=== PATIENT | female | born 1980 | race Caucasian/White ===

== ENCOUNTER 2017-12-11 00:10 | Observation (INO) | payer OTHER ==
[2017-12-11] VITALS (8 sets, daily range): BP systolic 106–127; BP diastolic 56–84
[~2017-12-11] VITALS: Ht 172.7 cm; Wt 77.1 kg
[~2017-12-11 00:10] MED LIST: ALB17R INH; CIP500 PO; KET10 PO; LEVO-3 PO; LEVOTHYROXINE; LOR5/325 PO; MONT10TA PO; MULT1CAP41 PO; NAPR-1043 PO; OMEP-218 PO; OMEP40CA48 PO
[2017-12-11] MEDS ORDERED: ACETAMINOPHEN(*)1000 MG/100 ML 100 ML IVPB ONE (08:29)
[2017-12-11] MEDS ORDERED: ONDANSETRON 4 MG/2 ML VIAL ONE (09:10)
[2017-12-11] MEDS ORDERED: ROCURONIUM BROM 10 MG/ML 10 ML ONE (09:10)
[2017-12-11] MEDS ORDERED: METOCLOPRAMIDE 10 MG/2 ML SDV ONE (09:10)
[2017-12-11] MEDS ORDERED: LIDOCAINE MPF 1% 5 ML VIAL ONE (09:10)
[2017-12-11] MEDS ORDERED: PROPOFOL EMUL(*) 10MG/ML 20 ML 20 ML ONE (09:10)
[2017-12-11] MEDS ORDERED: SUGAMMADEX SOD 200 MG/2 ML SDV ONE (09:10)
[2017-12-11] MEDS ORDERED: DEXAMETHASONE SOD 4 MG/ML VIAL ONE (09:10)
[2017-12-11] MEDS ORDERED: fentaNYL CITR 250 MCG/5 ML AMP ONE (09:13)
[2017-12-11 12:14] LABS: PLATELET COUNT, AUTOMATED 259 K/uL (150-450)
[2017-12-11] MEDS ORDERED: LIDOCAINE/SOD BICARB 8.4% SYR ID ONE (12:30)
[2017-12-11] MEDS ORDERED: cefOXitin SOD 2 GM VIAL 2 GM in NS(*) 0.9% 100 ML BAG 100 ML IVPB ONE (12:30)
[2017-12-11] MEDS ORDERED: PHENAZOPYRIDINE 200 MG TAB PO ONE (12:30)
[2017-12-11] MEDS ORDERED: MIDAZOLAM 2 MG/2 ML VIAL IVP PRN (12:30)
[2017-12-11] MEDS ORDERED: cefOXitin/DEX(*) 2GM/50ML PREM 50 ML IVPB ONE (12:30)
[2017-12-11] MEDS ORDERED: NORMOSOL R SOLN(*) 1000 ML BAG 1,000 ML IV PRN (12:30)
[2017-12-11] MEDS ORDERED: ROPIVACAINE 0.2% 20 ML VIAL ONE (13:43)
[2017-12-11] MEDS ORDERED: HYDROmorphone HCL 2 MG TAB PO PRN (16:20)
[2017-12-11] MEDS ORDERED: BELLADONNA ALK/OPIUM 60MG SUPP PR PRN (16:20)
[2017-12-11] MEDS ORDERED: ZOLPIDEM TARTRATE 10 MG TAB PO PRN (16:20)
[2017-12-11] MEDS ORDERED: ACETAMINOPHEN 325 MG TAB PO PRN (16:20)
[2017-12-11] MEDS ORDERED: ONDANSETRON 4 MG/2 ML VIAL IV PRN (16:20)
[2017-12-11] MEDS ORDERED: INFLUENZA VIRUS VAC 0.5 ML SYR IM ONE (16:20)
[2017-12-11] MEDS ORDERED: PROMETHAZINE 25 MG/ML 1 ML AMP IVP PRN (16:20)
[2017-12-11] MEDS ORDERED: SIMETHICONE 80 MG CHEW CHEW PRN (16:20)
--- NOTE | 2017-12-11 16:33 | Post Operative Note ---
Operative Note - GLASS CLEANER Operative Day Date: December 11, 2017 Time: 16:21 Physicians Surgeon: Rosalia [employer] Computation Clerk: Kathy Anesthesia: GETA Diagnosis Pre-Op Diagnosis: Dysmenorrhea Menorrhagia Post-Op Diagnosis: same endometriosis Procedure Findings: endometriosis Procedure(s): RATLH Bilateral salpingectomy [facility] Cystoscopy Specimen Removed:(Maybe N/A): [id number] Complications: none Fluids Fluids: 2200 ml Estimated Blood Loss: 50 ml Dictated Date OP Note Dictated: December 11, 2017 Time OP Note Dictated: 16:33 Copies to: AKIRA LOCKWOOD MD, TRAVIS MD December 11, 2017 16:33
[2017-12-11] MEDS ORDERED: fentaNYL CITR 100 MCG/2 ML AMP ONE ×2 (16:34→17:03)
[2017-12-11] MEDS: KETOROLAC 30 MG/ML VIAL IVP SCH ×2 (18:30→23:40)
--- NOTE | 2017-12-11 19:32 | OPERATIVE REPORT 1 ---
EVENT DATE: December 11, 2017 SURGEON: Zac Lindsey MD ANESTHESIOLOGIST: Perez Adkins MD ANESTHESIA: General endotracheal. HATCHERY LABORER: Perez Chavez MD PREOPERATIVE DIAGNOSES 1. Secondary dysmenorrhea. 2. Menorrhagia. POSTOPERATIVE DIAGNOSES 1. Secondary dysmenorrhea. 2. Menorrhagia. PROCEDURES PERFORMED 1. Robotic-assisted total laparoscopic hysterectomy. 2. Modified Le culdoplasty. 3. Bilateral salpingectomy. 4. Diagnostic cystoscopy. ESTIMATED BLOOD LOSS 50 mL FLUIDS Crystalloid 2200 mL IV. URINE OUTPUT Not measured. FINDINGS Normal-appearing ovaries, boggy-appearing uterus. No adhesions. Normal right upper quadrant. PROCEDURE IN DETAIL The patient was brought to the operating room with a working IV, placed in the dorsal supine position. She was placed under general endotracheal anesthesia and then moved to the dorsal lithotomy position. She was prepped and draped in the usual sterile fashion. A weighted speculum was placed in the vagina. The cervix was grasped on the anterior lip with a single-toothed tenaculum. The uterus was sounded to a depth of 8 cm, and a large VCare uterine manipulator was selected, assembled, and the VCare was passed through the cervix into the uterus, bulb inflated and secured. The VCare cup was sutured to the cervix and secured. The pneumo-preventing portion was approximated against the cup and secured in place. Gentile catheter was placed and put to dependent drainage. Legs were brought back to the supine position, and gloves were changed. We proceeded laparoscopically. Measuring from the target anatomy to the umbilicus was 12 cm; therefore, we proceeded with an umbilical incision 8 mm in size, elevated the anterior abdominal wall, and a Veress needle was passed through this incision into the abdomen. A pneumoperitoneum was created to an intra- abdominal pressure of 20 mmHg. Veress needle was removed, and an 8 mm robotic trocar was passed through this incision into the abdomen atraumatically. Additional robotic ports were placed as follows: The left lateral at 9 cm lateral to the umbilical port, two ports along the right side, both at 9 mm lateral in straight line with the umbilical port. These were all placed under similar technique and without incident, and an 11 mm health education assistant port was placed cephalad to the umbilical and left lateral port by 7 mm each, triangulating from that location. All ports were placed without incident. The robot was brought into place, and the trocars were visually verified that they were in the right location relative to the fascia. Then, the #2 arm of the robot was docked to the umbilical port. A camera was placed, and the machine was targeted. Once completed, the additional arms were docked, and the instruments were attached. They were followed into the patient's abdomen and pelvis, and all was done without incident. The vessel sealer was placed on arm #1, the monopolar scissors on arm #3, and a ProGrasp on arm #4. I then scrubbed out and presented to the console. The uterine manipulator was used to manipulate the uterus. The hysterectomy proceeded as follows: The right fallopian tube was grasped and elevated while the vessel sealer was used to cauterize and transect through the mesosalpinx to the utero-ovarian ligament. The utero- ovarian ligament was cauterized and transected with the vessel sealer. The round ligament was then cauterized and transected with the vessel sealer. The uterus was retroverted some, and we proceeded into the broad ligament which was into anterior and posterior leaflets. The anterior leaflet was followed along the anterior uterus creating a bladder flap, and the posterior leaflet was followed down to the uterosacral ligament on the right side. The uterine vessels were skeletonized and then cauterized with the vessel sealer and taken down using sharp dissection. The bladder was taken down, and the VCare cup was visually presenting through the vagina. Anterior colpotomy was then performed at this time in order to verify location. Once I had secured the anterior colpotomy, the right uterine vasculature was verified to have been taken down adequately, and then we proceeded along the left side in a likewise fashion, taking the left fallopian tube with the vessel sealer to the utero- ovarian ligament, cauterizing the utero-ovarian ligament, transecting and dissecting into the round ligament and into the broad ligament. It was in anterior and posterior leaflets. The anterior leaflet completed the dissection on the anterior side, and the posterior side was dissected down to the utero-ovarian ligament. The uterine vasculature was skeletonized. The uterine vessels were cauterized with the vessel sealer and taken down with sharp dissection down to the VCare cup. A posterior colpotomy was performed and dissected through the uterosacral ligaments on both sides. I then followed careful dissection circumferentially with the assistance of the VCare cup to complete the colpotomy. Once completed, the uterus was removed through the vagina, and a bulb grenade was placed to maintain the pneumoperitoneum. Instruments were changed for a long tip grasper on port #1 and Carlitos SutureCut needle boat driver on port #3. An 0 Vicryl was passed, and I proceeded to perform angle sutures, first on the right side incorporating the uterosacral ligament on that side, tying and securing and leaving a tag. The same procedure was followed on the contralateral side. Ureters were, again, verified and found to be well lateral of the operative and suture area. The needle was removed, and and 0 V-Loc suture was then passed using knot suture. The uterosacral ligament on the right side was grasped, and in a lateral to medial bite, secured, and passed again through the uterosacral ligament. This was then taken up to the angle and sutured to the vaginal cuff angle. I then followed along, completing the vaginal closure using a running, non-locking stitch with the V-Loc suture to the left angle, which was in a likewise fashion incorporated into the uterosacral ligament on the left in a similar fashion. The suture was cut flush with the vaginal cuff. Upon completion, there was excellent hemostasis. No visible complications. The pelvis was irrigated and suctioned dry. At this point, the procedure was declared finished, and I scrubbed back in to assist with closure of the 11 mm health education assistant port which was done with a Taz-Kamla needle passer with the assistance of the laparoscopic equipment in a single interrupted stitch through the fascia. This was tied and secured. The pneumoperitoneum was suctioned out. All trocars were removed. The ports were closed with a 4-0 Monocryl simple subdermal and covered with Dermabond skin adhesive. She was brought back to the lithotomy position, and diagnostic cystoscopy was performed by first draining the bladder, removing the Gentile catheter, and then performing the diagnostic cystoscopy. The full bladder was visualized and found to be without injury. Both ureteral orifices were visualized with an excellent urine jet from both sides. Therefore, the bladder was drained. All instruments were removed. Gentile catheter was left out. The legs were brought back to the supine position. She was cleaned up and taken to recovery in stable condition. She tolerated the procedure well. Sponge, lap, instrument, and needle counts were all correct times three. She was taken to recovery in stable condition. ELIAZAR
[2017-12-11] MEDS: FAMOTIDINE 20 MG TAB PO SCH (21:17)
[2017-12-11] MEDS: DOCUSATE CALCIUM 240 MG CAP PO SCH (21:17)
[2017-12-11] MEDS: DLR(*) 1000 ML BAG 1,000 ML IV PRN (21:17)
[2017-12-12 03:16] VITALS: BP 98/52
[2017-12-12] MEDS: DLR(*) 1000 ML BAG 1,000 ML IV PRN (04:12)
[2017-12-12] MEDS: KETOROLAC 30 MG/ML VIAL IVP SCH (05:52)
[2017-12-12 06:40] LABS: PLATELET COUNT, AUTOMATED 228 K/uL (150-450)
[2017-12-12 08:20] VITALS: BP 111/77
--- NOTE | 2017-12-12 08:41 | OB/GYN Progress Note ---
OB Subjective Progress Notes Subjective Doing well. Ambulating to BR well and voiding well. Pain mild and pt is happy GI: NEG Nausea, NEG Vomiting : Voiding Well Pain: Mild OB Objective Physical Exam Vital Signs Date Time Temp Pulse Resp B/P (MAP) Pulse Ox O2 Delivery O2 Flow Rate FiO2 12/12/17 07:45 55 16 96 Room Air 12/12/17 03:16 98.4 98/52 (67) 12/11/17 18:00 2.0 General Appearance: Alert/Awake/No Acute Distress Neurological: No Gross deficits Cardiovascular: Normal Rhythm & Peripheral Pulses Respiratory: No Respiratory Distress Abdomen: Soft, Non-Tender, Non-Distended Incision: Clean, Dry, Intact, Dermabond Extremities: No Cyanosis,Clubbing or Edema Integumentary: Skin Intact without Lesions or Rash Psychological: Alert & Oriented X3 Result Diagram: 12/12/17 0625 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 Reviewed activity at home. F/U at 2 weeks in office. AKIRA LCOKWOOD MD December 12, 2017 08:41
[2017-12-12] MEDS ORDERED: IBUP800T37 PO (08:42)
[2017-12-12] MEDS ORDERED: PER PO (08:42)
[2017-12-12] MEDS: FAMOTIDINE 20 MG TAB PO SCH (08:43)
[2017-12-12] MEDS: DOCUSATE CALCIUM 240 MG CAP PO SCH (08:43)
--- NOTE | 2017-12-12 08:44 | Short(Outpt) Discharge Summary ---
Discharge Summary Reason for Hosp/Final Diag: (1) Status post robot-assisted surgical procedure Hospital Course & Plan: Reviewed surgical findings including endometriosis and explained expected recovery. Reviewed activity at home. F/U at 2 weeks in office. Departure Discharge to: Home, Self Care Discharge Instructions Home Meds Active Scripts Oxycodone/Acetaminophen (OXYCODONE/ACETAMINOPHEN 5MG/325 MG) 5 Mg/325 Mg Tab, 1- 2 TAB PO Q4H Y for PAIN, #20 TAB 0 Refills Prov:ZAC LINDSEY MD 12/12/17 Ibuprofen (IBUPROFEN) 800 Mg Tablet, 800 MG PO Q8H Y for PAIN, #30 TAB 0 Refills Prov:ZAC LINDSEY MD 12/12/17 Reported Medications Montelukast Sodium (SINGULAIR) 10 Mg Tablet, 1 TAB PO QDAY, TAB 12/06/17 Levothyroxine Sodium (LEVOTHYROXINE SODIUM) 100 Mcg Tablet, 100 MCG PO QDAY, TAB 12/06/17 Omeprazole (OMEPRAZOLE) 40 Mg Capsule.dr, 40 MG PO QDAY, CAP 12/06/17 Naproxen Sodium (Aleve) 220 Mg Tablet, 220 MG PO PRN, 0 Refills 08/02/08 Multivitamins W-Minerals (Multivitamin) 1 Cap Capsule, 1 CAP PO, 0 Refills 08/02/08 Albuterol (Proventil Inhaler) 17 Gm Inh, 0 INH 1-2 PUFFS 08/02/08 Discontinued Reported Medications [Levothyroxine] No Conflict Check 08/02/08 Omeprazole Magnesium (Prilosec Otc) 20 Mg Tablet., 20 MG PO QDAY 08/02/08 Follow up Referrals: DIRECTOR POWER - In Two Weeks @ [facility] with Zac Lindsey Md Diet: Regular Activity: As Tolerated, No Heavy Lifting, No Exertion Copies to: ZAC LINDSEY MD, TRAVIS MD December 12, 2017 08:44
[2017-12-12] MEDS ORDERED: IBUPROFEN 800 MG TAB PO PRN (12:00)
[2017-12-13 08:21] VITALS: Ht 172.7 cm; Wt 77.1 kg
== END 2017-12-12 11:00 | disposition home or self-care (01) ==
LOC: OR 00:10 → PED 17:55
PROVIDERS: ADMIT Obstetrics & Gynecology; ATTEND Obstetrics & Gynecology
DX: N80.0 Endometriosis of uterus (principal); N94.5 Secondary dysmenorrhea; N92.0 Excessive and frequent menstruation with regular cycle; J45.909 Unspecified asthma, uncomplicated; E03.9 Hypothyroidism, unspecified; M54.5 Low back pain
CPT/HCPCS: 36415; 52000; 57270; 58572; 58661; 84703; 85014; 85018; 85025; 88307; G0378; J0131; J0694; J1100; J1885; J2001; J2250; J2405; J2704; J2765; J2795; J3010; J3490; J7050; S2900